=== PATIENT | male | born 1965 | race Caucasian/White ===

== ENCOUNTER 2018-06-16 17:53 | Emergency (ER) | payer OTHER | END 2018-06-16 22:56 | disposition home or self-care (01) | LOC: E/R 17:53 | DX: Z77.011 Contact with and (suspected) exposure to lead (principal); I10 Essential (primary) hypertension; Z87.891 Personal history of nicotine dependence; Z79.82 Long term (current) use of aspirin | CPT/HCPCS: 99283 ==